=== PATIENT | female | born 1955 | race Caucasian/White ===

== ENCOUNTER 2020-01-10 20:35 | Inpatient (IN) | payer MEDICAID ==
[~2020-01-10] VITALS: Ht 160 cm; Wt 70.5 kg
[~2020-01-10 20:35] MED LIST: heparin, porcine-25,000 units/D5-250ml premix IV ONE; nitroGLYCERIN in D5W 50mg/250ml (Tridil) infusion IV ONE
[2020-01-10] MEDS ORDERED: nitroGLYCERIN-Tridil 50MG/D5W 250 ML IV PRN (20:42)
[2020-01-10] MEDS ORDERED: NO HOME MEDS (20:45)
--- NOTE | 2020-01-10 20:50 | NUR ---
PT Allison CAN BE REACHED THROUGH COUSIN Suzie CELL PHONE AT [phone] . HE IS CURRENTLY AWAITING PLAN OF CARE UPDATE IN THE PARKING LOT IN A SMALL WHITE SUV PARKED IN [facility] IN FRONT OF THE MAIN ENTRANCE
[2020-01-10] MEDS ORDERED: heparin 10,000 units/1 ML INJ IV ONE (20:55)
[2020-01-10] MEDS: heparin 25,000 UNIT/250ml bag 250 ML IV SCH (21:00)
--- NOTE | 2020-01-10 21:00 | NUR ---
MIGUELANGEL TOOK PERSONAL BELONGINGS TO , KALI , IN PARKING LOT SHE HAS REQUESTED
[2020-01-10 21:02] LABS: BASOPHILS # (AUTO) 0.1 X10'3 (0-0.2); EOSINOPHILS # (AUTO) 0.2 X10'3 (0-0.9); EOSINOPHILS % (AUTO) 1.7 % (0-6); HEMATOCRIT 46.6 % (35.0-45.0); HEMOGLOBIN 15.6 g/dl (12.0-16.0); LYMPHOCYTES # (AUTO) 4.7 X10'3 (1.1-4.8); LYMPHOCYTES % (AUTO) 33.5 % (21-51); MEAN CORPUSCULAR HEMOGLOBIN 30.6 PG (27.0-31.0); MEAN CORPUSCULAR HGB CONC 33.5 g/dL (33.0-36.5); MEAN CORPUSCULAR VOLUME 91.3 FL (78-98); MEAN PLATELET VOLUME 9.2 FL (7.4-10.4); MONOCYTES # (AUTO) 0.9 X10'3 (0-0.9); MONOCYTES % (AUTO) 6.6 % (2-12); NEUTROPHILS % (AUTO) 57.2 % (42-75); PLATELET COUNT 259 X10'3 (140-440); RED CELL DISTRIBUTION WIDTH 13.9 % (11.5-14.5)
[2020-01-10] MEDS ORDERED: LIDOcaine 1% (10mg/ml)w/preservative injection 20ml MDV ONE (21:08)
[2020-01-10] MEDS ORDERED: midazolam 2 mg/2 ml injection ONE (21:08)
[2020-01-10] MEDS ORDERED: iohexol 350 MG/ML 50ML vial IV ONE (21:08)
[2020-01-10] MEDS ORDERED: fentaNYL/PF 50MCG/1 ML 2ML syringe ONE (21:08)
[2020-01-10] MEDS ORDERED: heparin 1,000unit/ml 10ml vial 10 ML ONE (21:08)
[2020-01-10] MEDS ORDERED: iohexol 350 MG/1 ML 200ml bottle ONE (21:09)
[2020-01-10 21:10] LABS: PARTIAL THROMBOPLASTIN TIME 29 SECONDS (22-32)
[2020-01-10 21:14] LABS: ALANINE AMINOTRANSFERASE 20 U/L (12-78); ALBUMIN 3.8 G/DL (3.4-5.0); ALBUMIN/GLOBULIN RATIO 0.9 (1.1-1.5); ALKALINE PHOSPHATASE 102 IU/L (46-116); ANION GAP 8 (8-16); ASPARTATE AMINO TRANSFERASE 16 U/L (10-37); BILIRUBIN,TOTAL 0.2 MG/DL (0.1-1.0); BLOOD UREA NITROGEN 11 MG/DL (7-18); BUN/CREATININE RATIO 11.5 (6.6-38.0); CALCIUM 9.6 MG/DL (8.5-10.1); CHLORIDE 103 MMOL/L (99-107); CREATININE 0.96 MG/DL (0.40-0.90); GLUCOSE 153 MG/DL (70-104); POTASSIUM 3.9 MMOL/L (3.5-5.1); SODIUM 141 MMOL/L (135-145); TOTAL CARBON DIOXIDE 30.2 MMOL/L (24-32); TOTAL PROTEIN 7.9 G/DL (6.4-8.2); eGFR 59 ML/MIN
[2020-01-10 21:23] LABS: LIPASE 244 U/L (73-393); MAGNESIUM 2.1 MG/DL (1.5-2.4)
[2020-01-10] MEDS ORDERED: DOPamine 400mg/D5W 250ml 250 ML IV ONE (21:48)
[2020-01-10] MEDS ORDERED: iohexol 350MG/ML 100ml bottle IV ONE (21:52)
[2020-01-10] MEDS ORDERED: ticagrelor 90mg tablet ONE (22:34)
[2020-01-10 23:00] VITALS: BP_SYST 105; BP_SYST 127; BP_DIAS 55; BP_DIAS 65
--- NOTE | 2020-01-10 23:05 | NUR ---
received pt via bed from cathlab, rt femoral sheath in place transduced and femstop in place for a small hematoma that occurred in cathlab. pt is awake and following commands, placed on monitor 1155 pts heart rate down to 52 sb, sbp via art and cuff in the 60's pt is weak and diaphoretic, spoke to Dr. Sheldon orders to stop heprian at 0300 get an act, when act less then 160 pul sheath, manual hold replace with femstop protocal to be followed, and to start dopamine to keep heart rate greater then 60 and map greater then 60 as well Addendum: 01/11/20 at 0456 by Crystal Reis RN also give a 500 ml bolus of ns
[2020-01-10 23:15] VITALS: BP 128/65
[2020-01-10 23:30] VITALS: BP 132/69
[2020-01-10] MEDS ORDERED: normal saline 1000ml 1,000 ML IV SCH (23:40)
[2020-01-10] MEDS ORDERED: cyclobenzaprine 10mg tablet PO PRN (23:45)
[2020-01-10] MEDS ORDERED: OXAZEpam 15mg capsule PO PRN (23:45)
[2020-01-10] MEDS ORDERED: acetaminophen 325mg tablet PO PRN (23:45)
[2020-01-10] MEDS ORDERED: HYDROcodone/acetaminophen 10/325mg tab PO PRN (23:45)
[2020-01-10] MEDS ORDERED: magnesium hydroxide 30ml (MOM) UD suspension PO PRN (23:45)
[2020-01-11] VITALS (26 sets, daily range): BP systolic 61–121; BP diastolic 28–54
[2020-01-11] MEDS ORDERED: DOPamine 400mg/D5W 250ml 250 ML IV ONE (00:07)
[2020-01-11] MEDS: DOPamine 400mg/D5W 250ml 250 ML IV SCH ×3 (00:40→18:26)
[2020-01-11 02:31] LABS: ALANINE AMINOTRANSFERASE 18 U/L (12-78); ALBUMIN 2.8 G/DL (3.4-5.0); ALKALINE PHOSPHATASE 75 IU/L (46-116); ANION GAP 10 (8-16); ASPARTATE AMINO TRANSFERASE 38 U/L (10-37); BILIRUBIN,TOTAL 0.3 MG/DL (0.1-1.0); BLOOD UREA NITROGEN 14 MG/DL (7-18); BUN/CREATININE RATIO 21.5 (6.6-38.0); CALCIUM 7.8 MG/DL (8.5-10.1); CHLORIDE 108 MMOL/L (99-107); CREATININE 0.65 MG/DL (0.40-0.90); GLUCOSE 195 MG/DL (70-104); POTASSIUM 3.9 MMOL/L (3.5-5.1); SODIUM 141 MMOL/L (135-145); TOTAL CARBON DIOXIDE 23.5 MMOL/L (24-32); TOTAL PROTEIN 5.6 G/DL (6.4-8.2); eGFR > 90 ML/MIN
[2020-01-11 02:36] LABS: MAGNESIUM 1.9 MG/DL (1.5-2.4); PHOSPHORUS 2.8 MG/DL (2.3-4.5)
[2020-01-11 02:53] LABS: BASOPHILS % (AUTO) 0.3 % (0-1); EOSINOPHILS # (AUTO) 0.1 X10'3 (0-0.9); EOSINOPHILS % (AUTO) 0.6 % (0-6); HEMATOCRIT 37.2 % (35.0-45.0); HEMOGLOBIN 12.4 g/dl (12.0-16.0); LYMPHOCYTES # (AUTO) 2.8 X10'3 (1.1-4.8); LYMPHOCYTES % (AUTO) 20.4 % (21-51); MEAN CORPUSCULAR HGB CONC 33.2 g/dL (33.0-36.5); MEAN CORPUSCULAR VOLUME 90.4 FL (78-98); MEAN PLATELET VOLUME 9.6 FL (7.4-10.4); MONOCYTES # (AUTO) 0.9 X10'3 (0-0.9); MONOCYTES % (AUTO) 6.1 % (2-12); NEUTROPHILS # (AUTO) 10.1 X10'3 (1.8-7.7); NEUTROPHILS % (AUTO) 72.6 % (42-75); PLATELET COUNT 262 X10'3 (140-440); RED BLOOD COUNT 4.11 X10'6 (4.20-5.60); RED CELL DISTRIBUTION WIDTH 13.6 % (11.5-14.5); WHITE BLOOD COUNT 13.9 X10'3 (4.5-11.0)
[2020-01-11] MEDS: HYDROcodone/acetaminophen 10/325mg tab PO PRN ×4 (04:42→20:44)
--- NOTE | 2020-01-11 05:53 | NUR ---
sheath dc'd manual hold 20 min hemostasis obtained, femstop placed pt tolerated well
[2020-01-11] MEDS ORDERED: ondansetron/PF 4mg/2ml inj ONE (05:59)
--- NOTE | 2020-01-11 06:08 | NUR ---
updated Dr. Sheldon trop 18.9 and pt is nauseated and remains on dopamine new orders Addendum: 01/11/20 at 0616 by Crystal Reis RN for zofran 4mg iv q6 hr and for 500ml bolus of ns then re check hgb in 4 hrs.
[2020-01-11] MEDS ORDERED: ondansetron/PF 4mg/2ml inj IV PRN (06:10)
--- NOTE | 2020-01-11 06:38 | NUR ---
report given to rec rn plan of care reviewed
[2020-01-11 06:53] LABS: CHOLESTEROL 191 MG/DL (0-200); HDL CHOLESTEROL 32 MG/DL (35-60); LDL CHOLESTEROL 147 MG/DL (50-100); TRIGLYCERIDES 102 MG/DL (20-135)
[2020-01-11] MEDS: heparin 25,000 UNIT/250ml bag 250 ML IV SCH (07:00)
[2020-01-11] MEDS ORDERED: lisinopril 5mg tablet PO SCH (08:00)
[2020-01-11] MEDS: metoprolol succinate 25mg (24-HOUR) SR. Tablet PO SCH (08:00)
[2020-01-11] MEDS ORDERED: normal saline 1000ml 1,000 ML IV ONE (08:45)
[2020-01-11] MEDS ORDERED: morphine 4 MG/ML inj SYRINge ONE (08:47)
[2020-01-11] MEDS ORDERED: morphine 2 MG/ML inj. syringe IV PRN (08:50)
[2020-01-11] MEDS ORDERED: NORepinephrine 8mg/ 250ml NS 250 ML IV ONE (09:09)
[2020-01-11 09:30] LABS: BASOPHILS % (AUTO) 0.2 % (0-1); EOSINOPHILS % (AUTO) 0 % (0-6); HEMATOCRIT 35.4 % (35.0-45.0); HEMOGLOBIN 11.8 g/dl (12.0-16.0); LYMPHOCYTES # (AUTO) 1.7 X10'3 (1.1-4.8); LYMPHOCYTES % (AUTO) 12.2 % (21-51); MEAN CORPUSCULAR HEMOGLOBIN 30.4 PG (27.0-31.0); MEAN CORPUSCULAR HGB CONC 33.4 g/dL (33.0-36.5); MEAN CORPUSCULAR VOLUME 91.1 FL (78-98); MEAN PLATELET VOLUME 9.2 FL (7.4-10.4); MONOCYTES # (AUTO) 0.6 X10'3 (0-0.9); MONOCYTES % (AUTO) 4.3 % (2-12); NEUTROPHILS # (AUTO) 11.8 X10'3 (1.8-7.7); NEUTROPHILS % (AUTO) 83.3 % (42-75); PLATELET COUNT 231 X10'3 (140-440); RED BLOOD COUNT 3.88 X10'6 (4.20-5.60); RED CELL DISTRIBUTION WIDTH 13.7 % (11.5-14.5); WHITE BLOOD COUNT 14.1 X10'3 (4.5-11.0)
[2020-01-11 09:33] LABS: ALBUMIN 2.8 G/DL (3.4-5.0); ANION GAP 8 (8-16); BLOOD UREA NITROGEN 13 MG/DL (7-18); BUN/CREATININE RATIO 18.6 (6.6-38.0); CALCIUM 7.7 MG/DL (8.5-10.1); CHLORIDE 111 MMOL/L (99-107); GLUCOSE 205 MG/DL (70-104); POTASSIUM 3.9 MMOL/L (3.5-5.1); SODIUM 142 MMOL/L (135-145); TOTAL CARBON DIOXIDE 23.4 MMOL/L (24-32); eGFR 84 ML/MIN
[2020-01-11 09:40] LABS: TROPONIN I 11.77 NG/ML (0.0-0.05)
--- NOTE | 2020-01-11 10:00 | NUR ---
Problems reprioritized. Patient report given, questions answered & plan of care reviewed with GAVIOTA Clark.
--- NOTE | 2020-01-11 10:07 | NUR ---
[facility] LINE INFORMATION: REF: [id number] LOT: [id number] EXP: 05/09/2020
[2020-01-11] MEDS: aspirin 81mg tab.chew PO SCH (10:50)
[2020-01-11] MEDS: atorvastatin 20mg tablet PO SCH (10:50)
[2020-01-11] MEDS: ticagrelor 90mg tablet PO SCH ×2 (10:51→20:43)
[2020-01-11] MEDS: docusate sod 100mg capsule PO SCH ×2 (10:51→20:43)
--- NOTE | 2020-01-11 12:00 | NUR ---
femstop removed, hemostasis achieved, no hematoma present.
[2020-01-11 12:14] LABS: HEMOGLOBIN 10.4 g/dl (12.0-16.0); MEAN CORPUSCULAR HEMOGLOBIN 29.8 PG (27.0-31.0); MEAN CORPUSCULAR HGB CONC 32.6 g/dL (33.0-36.5); MEAN CORPUSCULAR VOLUME 91.5 FL (78-98); MEAN PLATELET VOLUME 9.2 FL (7.4-10.4); PLATELET COUNT 224 X10'3 (140-440); RED BLOOD COUNT 3.49 X10'6 (4.20-5.60); RED CELL DISTRIBUTION WIDTH 13.6 % (11.5-14.5); WHITE BLOOD COUNT 14.9 X10'3 (4.5-11.0)
--- NOTE | 2020-01-11 12:59 | NUR ---
Noted pt hx diet-controlled DM and first admit w/ no A1C hx. Pending A1C at this time; will monitor for results and DM ed needs as medically indicated. Addendum: 01/11/20 at [address] Amended: Links added.
[2020-01-11 13:09] LABS: HEMOGLOBIN A1C 6.3 % (4.5-6.2)
--- NOTE | 2020-01-11 13:30 | NUR ---
patient to CT
--- NOTE | 2020-01-11 13:50 | NUR ---
patient back to room,
--- NOTE | 2020-01-11 18:35 | NUR ---
Patient in room ICU 2043. I have received report from Amber MOREAU, and had the opportunity to ask questions and assume patient care.
[2020-01-11] MEDS: lisinopril 5mg tablet PO SCH (20:44)
[2020-01-11 22:49] LABS: HEMATOCRIT 31.4 % (35.0-45.0); HEMOGLOBIN 10.7 g/dl (12.0-16.0); MEAN CORPUSCULAR HEMOGLOBIN 30.5 PG (27.0-31.0); MEAN CORPUSCULAR HGB CONC 34.1 g/dL (33.0-36.5); MEAN CORPUSCULAR VOLUME 89.4 FL (78-98); MEAN PLATELET VOLUME 8.8 FL (7.4-10.4); PLATELET COUNT 170 X10'3 (140-440); RED BLOOD COUNT 3.52 X10'6 (4.20-5.60); RED CELL DISTRIBUTION WIDTH 14.3 % (11.5-14.5); WHITE BLOOD COUNT 13.8 X10'3 (4.5-11.0)
--- NOTE | 2020-01-11 22:50 | NUR ---
Patient resting at this moment. No complaining of pain, The site is clean, dry, intact. No chest pain.
--- NOTE | 2020-01-11 22:54 | NUR ---
The Hemoglobin level is 10.7. Will redraw the in H&H at 0230. Patient is asymptomatic and resting at this time.
[2020-01-12] VITALS (21 sets, daily range): BP systolic 88–151; BP diastolic 37–64
[2020-01-12 03:00] LABS: BASOPHILS # (AUTO) 0.1 X10'3 (0-0.2); BASOPHILS % (AUTO) 0.6 % (0-1); EOSINOPHILS # (AUTO) 0.2 X10'3 (0-0.9); EOSINOPHILS % (AUTO) 1.1 % (0-6); HEMATOCRIT 32.4 % (35.0-45.0); HEMOGLOBIN 10.7 g/dl (12.0-16.0); MEAN CORPUSCULAR HEMOGLOBIN 29.4 PG (27.0-31.0); MEAN CORPUSCULAR HGB CONC 32.9 g/dL (33.0-36.5); MEAN CORPUSCULAR VOLUME 89.2 FL (78-98); MEAN PLATELET VOLUME 9.1 FL (7.4-10.4); MONOCYTES # (AUTO) 1.1 X10'3 (0-0.9); MONOCYTES % (AUTO) 7.8 % (2-12); NEUTROPHILS # (AUTO) 9.3 X10'3 (1.8-7.7); NEUTROPHILS % (AUTO) 68.5 % (42-75); PLATELET COUNT 182 X10'3 (140-440); RED BLOOD COUNT 3.63 X10'6 (4.20-5.60); RED CELL DISTRIBUTION WIDTH 14.4 % (11.5-14.5); WHITE BLOOD COUNT 13.7 X10'3 (4.5-11.0)
[2020-01-12 03:12] LABS: ALANINE AMINOTRANSFERASE 17 U/L (12-78); ALBUMIN 2.8 G/DL (3.4-5.0); ALKALINE PHOSPHATASE 72 IU/L (46-116); ANION GAP 6 (8-16); ASPARTATE AMINO TRANSFERASE 26 U/L (10-37); BILIRUBIN,TOTAL 0.9 MG/DL (0.1-1.0); BLOOD UREA NITROGEN 8 MG/DL (7-18); BUN/CREATININE RATIO 13.6 (6.6-38.0); CALCIUM 8.3 MG/DL (8.5-10.1); CHLORIDE 110 MMOL/L (99-107); CREATININE 0.59 MG/DL (0.40-0.90); GLUCOSE 123 MG/DL (70-104); POTASSIUM 3.5 MMOL/L (3.5-5.1); SODIUM 144 MMOL/L (135-145); TOTAL CARBON DIOXIDE 27.8 MMOL/L (24-32); TOTAL PROTEIN 5.7 G/DL (6.4-8.2); eGFR > 90 ML/MIN
--- NOTE | 2020-01-12 03:25 | NUR ---
No change in Hemoglobin level. It is 10.7. Patient is asymptomatic, and resting well. No complaining of chest pain. Will recheck Hemoglobin at 0630.
--- NOTE | 2020-01-12 06:28 | NUR ---
Problems reprioritized. Patient report given Alexx, questions answered & plan of care reviewed with .
[2020-01-12 06:34] LABS: HEMATOCRIT 32.7 % (35.0-45.0); HEMOGLOBIN 11.1 g/dl (12.0-16.0); MEAN CORPUSCULAR HEMOGLOBIN 30.2 PG (27.0-31.0); MEAN CORPUSCULAR VOLUME 88.9 FL (78-98); MEAN PLATELET VOLUME 8.8 FL (7.4-10.4); PLATELET COUNT 178 X10'3 (140-440); RED BLOOD COUNT 3.68 X10'6 (4.20-5.60); RED CELL DISTRIBUTION WIDTH 14.6 % (11.5-14.5); WHITE BLOOD COUNT 12.9 X10'3 (4.5-11.0)
[2020-01-12] MEDS: ticagrelor 90mg tablet PO SCH ×2 (08:14→21:47)
[2020-01-12] MEDS: atorvastatin 20mg tablet PO SCH (08:14)
[2020-01-12] MEDS: docusate sod 100mg capsule PO SCH ×2 (08:14→21:47)
[2020-01-12] MEDS: aspirin 81mg tab.chew PO SCH (08:14)
[2020-01-12] MEDS: metoprolol succinate 25mg (24-HOUR) SR. Tablet PO SCH (08:14)
[2020-01-12] MEDS ORDERED: morphine 4 MG/ML inj SYRINge IV ONE (09:00)
[2020-01-12] MEDS ORDERED: morphine 2 MG/ML inj. syringe IV ONE (09:00)
--- NOTE | 2020-01-12 09:00 | NUR ---
DECREASED DOPAMINE GTT TO 2.9MCG/KG/HR PER DR. ARGUELLO'S VERBAL ORDER WEAN DOPAMINE TODAY AND POSSIBLY TRANSFER TO PCU
[2020-01-12] MEDS: DOPamine 400mg/D5W 250ml 250 ML IV SCH ×2 (09:24→18:45)
--- NOTE | 2020-01-12 10:00 | NUR ---
DECREASED DOPAMINE GTT TO 2 MCG/KG/MIN
[2020-01-12 10:48] LABS: HEMOGLOBIN 10.7 g/dl (12.0-16.0); MEAN CORPUSCULAR HEMOGLOBIN 29.8 PG (27.0-31.0); MEAN CORPUSCULAR HGB CONC 33.5 g/dL (33.0-36.5); MEAN CORPUSCULAR VOLUME 88.9 FL (78-98); MEAN PLATELET VOLUME 9.1 FL (7.4-10.4); PLATELET COUNT 169 X10'3 (140-440); RED CELL DISTRIBUTION WIDTH 14.3 % (11.5-14.5); WHITE BLOOD COUNT 11.1 X10'3 (4.5-11.0)
--- NOTE | 2020-01-12 11:00 | NUR ---
BP 88/41; CALLED DR. ARGUELLO ORDER TO INCREASE DOPAMINE TO 3MCG/KG/MIN, GIVE 250ML BOLUS WILL CONTINUE TO MONITOR
[2020-01-12] MEDS ORDERED: normal saline 1000ml 1,000 ML IV ONE (11:10)
--- NOTE | 2020-01-12 12:45 | NUR ---
Morphine given yesterday after Dr. Rios gave verbal order for 2mg IVP to give to patient for acute lower back pain. Sunshine the charge nurse got the 4 mg dose out of the omnicelle. I gave 2 mg of the 4 mg dose and Sierra Aguilar RN observed this waste.
[2020-01-12] MEDS ORDERED: normal saline 1000ml 1,000 ML IV SCH (14:00)
--- NOTE | 2020-01-12 14:00 | NUR ---
BP REMAINS 101/39; LET DR. ALMARAZ KNOW AT BEDSIDE ORDER FOR 500ML BOLUS NOW WILL CONTINUE TO MONITOR
[2020-01-12 15:27] LABS: HEMATOCRIT 32.1 % (35.0-45.0); HEMOGLOBIN 10.4 g/dl (12.0-16.0); MEAN CORPUSCULAR HEMOGLOBIN 29.3 PG (27.0-31.0); MEAN CORPUSCULAR HGB CONC 32.5 g/dL (33.0-36.5); MEAN CORPUSCULAR VOLUME 90.2 FL (78-98); MEAN PLATELET VOLUME 9.3 FL (7.4-10.4); PLATELET COUNT 175 X10'3 (140-440); RED BLOOD COUNT 3.55 X10'6 (4.20-5.60); RED CELL DISTRIBUTION WIDTH 14.4 % (11.5-14.5); WHITE BLOOD COUNT 11.2 X10'3 (4.5-11.0)
[2020-01-12] MEDS: lisinopril 5mg tablet PO SCH (16:11)
--- NOTE | 2020-01-12 18:35 | NUR ---
Patient in room ICU 2043. I have received report from Yoon CHRISTIAN, and had the opportunity to ask questions and assume patient care.
[2020-01-12 21:43] LABS: HEMATOCRIT 30.3 % (35.0-45.0); HEMOGLOBIN 10.2 g/dl (12.0-16.0); MEAN CORPUSCULAR HEMOGLOBIN 30.1 PG (27.0-31.0); MEAN CORPUSCULAR HGB CONC 33.6 g/dL (33.0-36.5); MEAN CORPUSCULAR VOLUME 89.7 FL (78-98); MEAN PLATELET VOLUME 9.3 FL (7.4-10.4); PLATELET COUNT 167 X10'3 (140-440); RED BLOOD COUNT 3.38 X10'6 (4.20-5.60); RED CELL DISTRIBUTION WIDTH 14.7 % (11.5-14.5); WHITE BLOOD COUNT 12.6 X10'3 (4.5-11.0)
[2020-01-13] VITALS (9 sets, daily range): BP systolic 113–148; BP diastolic 47–62
[2020-01-13 02:59] LABS: BASOPHILS # (AUTO) 0.1 X10'3 (0-0.2); BASOPHILS % (AUTO) 0.5 % (0-1); EOSINOPHILS # (AUTO) 0.3 X10'3 (0-0.9); EOSINOPHILS % (AUTO) 2.1 % (0-6); HEMOGLOBIN 10.2 g/dl (12.0-16.0); LYMPHOCYTES % (AUTO) 24.3 % (21-51); MEAN CORPUSCULAR HEMOGLOBIN 30.4 PG (27.0-31.0); MEAN CORPUSCULAR HGB CONC 33.8 g/dL (33.0-36.5); MEAN CORPUSCULAR VOLUME 89.9 FL (78-98); NEUTROPHILS # (AUTO) 8.1 X10'3 (1.8-7.7); NEUTROPHILS % (AUTO) 65.1 % (42-75); PLATELET COUNT 166 X10'3 (140-440); RED BLOOD COUNT 3.34 X10'6 (4.20-5.60); RED CELL DISTRIBUTION WIDTH 14.5 % (11.5-14.5); WHITE BLOOD COUNT 12.5 X10'3 (4.5-11.0)
--- NOTE | 2020-01-13 03:18 | NUR ---
Hemoglobin at 0230 came back 10.2. No drop in H&H. Will recheck the H&H at 0830. Patient is alert, oriented x4, no chest pain. Can't wait to go home toña.
--- NOTE | 2020-01-13 06:06 | NUR ---
Patient in room ICU 2043. I have received report from Seb, and had the opportunity to ask questions and assume patient care.
--- NOTE | 2020-01-13 06:35 | NUR ---
Patient in room ICU 2043. I have received report from GAVIOTA Vásquez and had the opportunity to ask questions and assume patient care.
[2020-01-13] MEDS: metoprolol succinate 25mg (24-HOUR) SR. Tablet PO SCH (07:52)
[2020-01-13] MEDS: aspirin 81mg tab.chew PO SCH (07:52)
[2020-01-13] MEDS: atorvastatin 20mg tablet PO SCH (07:52)
[2020-01-13] MEDS: docusate sod 100mg capsule PO SCH (07:52)
[2020-01-13] MEDS: ticagrelor 90mg tablet PO SCH (07:52)
[2020-01-13] MEDS ORDERED: normal saline 1000ml 1,000 ML IV ONE (11:50)
[2020-01-13] MEDS ORDERED: ASPI-611 PO (12:22)
[2020-01-13] MEDS ORDERED: LISI-642 PO (12:22)
[2020-01-13] MEDS ORDERED: TICA90TA PO (12:22)
[2020-01-13] MEDS ORDERED: METO-395 PO (12:22)
[2020-01-13] MEDS ORDERED: NITR0.4T51 SL (12:22)
[2020-01-13] MEDS ORDERED: ATOR20TA66 PO (12:22)
--- NOTE | 2020-01-13 17:31 | NUR ---
pt. discharged from facility at 1700. pt was escorted to the lobby by staff to meet her who was taking her home. pt. signed and understood all paperwork. pt. PICC line was d/c intact. all meds were faxed to [facility] on [facility] and script was handed to pt. pt. understands to make follow-up appointments. pt. left with all belongings.
== END 2020-01-13 17:00 | disposition home or self-care (01) | DRG 174 ==
LOC: ER 20:35 → ICU 2S 23:14
PROVIDERS: ADMIT Internal Medicine Cardiovascular Disease; ATTEND Internal Medicine Cardiovascular Disease
PROC: 4A023N7 Measurement of Cardiac Sampling and Pressure, Left Heart, Percutaneous Approach (ICD-10-PCS; principal; 2020-01-10)
PROC: 027034Z Dilation of Coronary Artery, One Artery with Drug-eluting Intraluminal Device, Percutaneous Approach (ICD-10-PCS; 2020-01-10)
PROC: B2111ZZ Fluoroscopy of Multiple Coronary Arteries using Low Osmolar Contrast (ICD-10-PCS; 2020-01-10)
PROC: B2151ZZ Fluoroscopy of Left Heart using Low Osmolar Contrast (ICD-10-PCS; 2020-01-10)
PROC: 02703ZZ Dilation of Coronary Artery, One Artery, Percutaneous Approach (ICD-10-PCS; 2020-01-10)
PROC: 30233N1 Transfusion of Nonautologous Red Blood Cells into Peripheral Vein, Percutaneous Approach (ICD-10-PCS; 2020-01-11)
PROC: 02HV33Z Insertion of Infusion Device into Superior Vena Cava, Percutaneous Approach (ICD-10-PCS; 2020-01-11)
PROC: B548ZZA Ultrasonography of Superior Vena Cava, Guidance (ICD-10-PCS; 2020-01-11)
DX: I21.19 ST elevation (STEMI) myocardial infarction involving other coronary artery of inferior wall (principal); K66.1 Hemoperitoneum; R71.0 Precipitous drop in hematocrit; I95.9 Hypotension, unspecified; E11.9 Type 2 diabetes mellitus without complications; E78.00 Pure hypercholesterolemia, unspecified; R58 Hemorrhage, not elsewhere classified; E78.5 Hyperlipidemia, unspecified; F17.200 Nicotine dependence, unspecified, uncomplicated; Z80.51 Family history of malignant neoplasm of kidney; Z71.6 Tobacco abuse counseling
CPT/HCPCS: 36415; 36430; 36573; 71045; 71250; 74176; 76937; 80048; 80053; 80061; 82948; 83036; 83690; 83735; 83880; 84100; 84484; 85025; 85027; 85347; 85610; 85730; 86885; 86900; 86901; 86920; 87081; 92920; 92921; 93005; 93308; 93458; 96365; 96375; 99152; 99153; 99285; A4620; A6258; C1725; C1751; C1769; C1874; C9600; C9606; G0378; J1265; J1644; J2001; J2250; J2270; J2405; J3010; J3490; J7030; J7040; P9016; Q9967

== ENCOUNTER 2020-01-15 21:17 | Emergency (ER) | payer MEDICAID ==
[~2020-01-15] VITALS: Ht 160 cm; Wt 70.5 kg
[~2020-01-15 21:17] MED LIST changes: +ASPI-611 PO; +ATOR20TA66 PO; +LISI-642 PO; +METO-395 PO; +NITR0.4T51 SL; +NO HOME MEDS; +TICA90TA PO; -heparin, porcine-25,000 units/D5-250ml premix IV ONE; -nitroGLYCERIN in D5W 50mg/250ml (Tridil) infusion IV ONE
[2020-01-15 22:20] VITALS: BP 116/66
== END 2020-01-15 22:18 | disposition home or self-care (01) ==
LOC: ER 21:18
DX: L76.32 Postprocedural hematoma of skin and subcutaneous tissue following other procedure (principal); G89.18 Other acute postprocedural pain; R42 Dizziness and giddiness; I25.10 Atherosclerotic heart disease of native coronary artery without angina pectoris; E78.00 Pure hypercholesterolemia, unspecified; I25.2 Old myocardial infarction; E11.9 Type 2 diabetes mellitus without complications; Z79.82 Long term (current) use of aspirin; Z79.899 Other long term (current) drug therapy; Y83.8 Other surgical procedures as the cause of abnormal reaction of the patient, or of later complication, without mention of misadventure at the time of the procedure
CPT/HCPCS: 99281

== ENCOUNTER 2020-01-19 18:36 | Emergency (ER) | payer MEDICAID ==
[~2020-01-19] VITALS: Ht 160 cm; Wt 69.5 kg
[2020-01-19 20:08] LABS: BASOPHILS # (AUTO) 0.1 X10'3 (0-0.2); BASOPHILS % (AUTO) 0.5 % (0-1); EOSINOPHILS # (AUTO) 0.3 X10'3 (0-0.9); EOSINOPHILS % (AUTO) 2.5 % (0-6); HEMATOCRIT 36.8 % (35.0-45.0); HEMOGLOBIN 12.1 g/dl (12.0-16.0); LYMPHOCYTES # (AUTO) 2.7 X10'3 (1.1-4.8); LYMPHOCYTES % (AUTO) 21.8 % (21-51); MEAN CORPUSCULAR HEMOGLOBIN 29.9 PG (27.0-31.0); MEAN CORPUSCULAR HGB CONC 32.9 g/dL (33.0-36.5); MEAN PLATELET VOLUME 8.9 FL (7.4-10.4); MONOCYTES # (AUTO) 1.1 X10'3 (0-0.9); MONOCYTES % (AUTO) 8.4 % (2-12); NEUTROPHILS # (AUTO) 8.4 X10'3 (1.8-7.7); NEUTROPHILS % (AUTO) 66.8 % (42-75); PLATELET COUNT 332 X10'3 (140-440); RED BLOOD COUNT 4.04 X10'6 (4.20-5.60); RED CELL DISTRIBUTION WIDTH 14.1 % (11.5-14.5); WHITE BLOOD COUNT 12.6 X10'3 (4.5-11.0)
[2020-01-19 20:26] LABS: ALBUMIN 3.4 G/DL (3.4-5.0); ANION GAP 8 (8-16); BLOOD UREA NITROGEN 15 MG/DL (7-18); BUN/CREATININE RATIO 20.8 (6.6-38.0); CALCIUM 9.2 MG/DL (8.5-10.1); CHLORIDE 105 MMOL/L (99-107); CREATININE 0.72 MG/DL (0.40-0.90); GLUCOSE 82 MG/DL (70-104); POTASSIUM 3.8 MMOL/L (3.5-5.1); SODIUM 141 MMOL/L (135-145); TOTAL CARBON DIOXIDE 28.1 MMOL/L (24-32); eGFR 82 ML/MIN
[2020-01-19 23:37] VITALS: BP 114/70
== END 2020-01-19 23:37 | disposition home or self-care (01) ==
LOC: ER 18:36
DX: M54.2 Cervicalgia (principal); M62.838 Other muscle spasm; I25.10 Atherosclerotic heart disease of native coronary artery without angina pectoris; E78.00 Pure hypercholesterolemia, unspecified; I25.2 Old myocardial infarction; E11.9 Type 2 diabetes mellitus without complications; Z79.82 Long term (current) use of aspirin; Z79.899 Other long term (current) drug therapy
CPT/HCPCS: 36415; 71046; 80048; 84484; 85025; 93005; 99285

== ENCOUNTER 2024-05-02 09:44 | Emergency (ER) | payer MEDICARE, MEDICAID ==
[~2024-05-02] VITALS: Ht 177.8 cm; Wt 113.3 kg
[~2024-05-02 09:44] MED LIST changes: -ASPI-611 PO
[2024-05-02 09:55] VITALS: TEMP 97.9
[2024-05-02] MEDS: diphenhydrAMINE 50 mg/ml inj IV ONE (10:37)
[2024-05-02] MEDS: epiNEPHrine 1 mg/ml inj SQ ONE (10:45)
[2024-05-02] MEDS: methylPREDNISolone sod succ 125mg/2ml vial IV ONE (11:02)
[2024-05-02] MEDS: famotidine/PF 10 mg/ml inj IV ONE (11:02)
[2024-05-02] MEDS: normal saline 1000ML IV soln IVB ONE (12:09)
[2024-05-02 12:15] LABS: BASOPHILS # (AUTO) 0.1 X10'3 (0-0.2); BASOPHILS % (AUTO) 0.7 % (0-1); EOSINOPHILS # (AUTO) 0.2 X10'3 (0-0.9); EOSINOPHILS % (AUTO) 1.6 % (0-6); HEMATOCRIT 43.8 % (35.0-45.0); HEMOGLOBIN 14.5 g/dl (12.0-16.0); LYMPHOCYTES # (AUTO) 5.1 X10'3 (1.1-4.8); LYMPHOCYTES % (AUTO) 43.7 % (21-51); MEAN CORPUSCULAR HEMOGLOBIN 30.7 PG (27.0-31.0); MEAN CORPUSCULAR HGB CONC 33.1 g/dL (33.0-36.5); MEAN CORPUSCULAR VOLUME 92.8 FL (78-98); MEAN PLATELET VOLUME 9.3 FL (7.4-10.4); MONOCYTES # (AUTO) 0.7 X10'3 (0-0.9); MONOCYTES % (AUTO) 5.9 % (2-12); NEUTROPHILS # (AUTO) 5.6 X10'3 (1.8-7.7); NEUTROPHILS % (AUTO) 48.1 % (42-75); PLATELET COUNT 244 X10'3 (140-440); RED BLOOD COUNT 4.72 X10'6 (4.20-5.60); RED CELL DISTRIBUTION WIDTH 13.5 % (11.5-14.5); WHITE BLOOD COUNT 11.6 X10'3 (4.5-11.0)
[2024-05-02 12:27] LABS: ALBUMIN 3.6 G/DL (3.4-5.0); ANION GAP 9 (8-16); BLOOD UREA NITROGEN 12 MG/DL (7-18); BUN/CREATININE RATIO 18.2 (10.0-20.0); CALCIUM 9.5 MG/DL (8.5-10.1); CHLORIDE 105 MMOL/L (99-107); CREATININE 0.66 MG/DL (0.40-0.90); GLUCOSE 160 MG/DL (70-104); POTASSIUM 3.6 MMOL/L (3.5-5.1); SODIUM 141 MMOL/L (135-145); TOTAL CARBON DIOXIDE 27.4 MMOL/L (24-32); eCRCL 88 ML/MIN; eGFR 89 ML/MIN
[2024-05-02 12:40] LABS: PLATELET ESTIMATE NORMAL; TOTAL CELLS COUNTED 100
[2024-05-02 13:03] VITALS: BP 131/60; PULSE 82; RESP 18; O2SAT 95
== END 2024-05-02 15:22 | disposition home or self-care (01) ==
LOC: ER 09:44
DX: T78.3XXA Angioneurotic edema, initial encounter (principal); I25.10 Atherosclerotic heart disease of native coronary artery without angina pectoris; E78.00 Pure hypercholesterolemia, unspecified; I25.2 Old myocardial infarction; E11.9 Type 2 diabetes mellitus without complications; Z79.899 Other long term (current) drug therapy
CPT/HCPCS: 80048; 85007; 85025; 96361; 96372; 96374; 96375; 99285; J0171; J1200; J2919; J3490; J7030

== ENCOUNTER 2025-03-16 08:30 | Emergency (ER) | payer MEDICARE, MEDICAID ==
[~2025-03-16] VITALS: Ht 160 cm; Wt 64.6 kg
[2025-03-16 08:47] VITALS: BP 131/72
--- NOTE | 2025-03-16 08:53 | Physician Documentation ---
History of Present Illness ~ Chief Complaint: Cold, cough & congestion Stated Complaint: CONGESTION Time Seen by MD: 08:54 Primary Medical Doctor: Lm-Tire Changer HPI Patient is a 69-year-old female with a history of coronary artery disease and emphysema. Current smoker. She reports that she has been feeling congested for the last several days with a cough and increased wheezing. Denies any recent fevers. Medication Reconciliation Allergies: Coded Allergies: KENNEDY Inhibitors (Unverified Allergy, Severe, angioedema, 05/02/24) lisinopril (Unverified Allergy, Severe, angioedema, 05/02/24) Scheduled Atorvastatin Calcium (Atorvastatin Calcium), 40 MG PO DAILY Lisinopril* (Zestril*), 2.5 MG PO HS Metoprolol Succinate (Metoprolol Succinate), 25 MG PO DAILY Nitroglycerin SL* (Nitrostat SL*), 1 TAB SL UD Ticagrelor (Brilinta), 90 MG PO BID Miscellaneous Medications Home Med List (No Home Medications), (Reported) Past Medical History Past Medical History: Coronary Artery Disease, High Cholesterol, Myocardial Infarction, Diabetes Past Surgical History: no surgical history Alcohol Use: None Drug Use: none Lives with: Spouse Lives In: Home Review of Systems ROS As stated above in the HPI, otherwise all systems are reviewed and negative. Physical Exam Vital Signs: Temperature: 99.3, Source: Temporal, Heart Rate: 87, Respiratory Rate: 18, BP: 131/72, Pulse Oximetry: 93, Weight: 64.600 Oxygen Flow Rate: 0 Physical Exam General: Alert, no apparent distress. Neck: Full range of motion. Respiratory: Moderate wheezing, no respiratory distress. Chest: No accessory muscle use. Cardiovascular: Regular rate and rhythm, no murmurs. Gastrointestinal: Soft, nontender, nondistended. Bowels sounds present. Extremities: Normal range of motion, no deformity. Neurologic: Oriented x4. Psychiatric: Normal mood and affect. Skin: Normal color, warm and dry. No edema, no ecchymosis. Progress Results/Orders Results/Orders Orders - KIMBERLEY RIOS NP Svn Treatment (03/16/25 08:51) Covid19 Binax Poc Result Entry (03/16/25 09:22) Completed Orders - KIMBERLEY RIOS NP Ipratropium/Albuterol Nebule (Ipratrop/A (03/16/25 08:55) Medications Received in ER Medications (Trade) Dose Ordered Sig/John Paul Route PRN Reason Start Time Stop Time Status Last Admin Dose Admin (ipratrop/ albuterol 0.5-3(2.5) MG/3ml nebule) 3 ml ONCE ONCE NEB 03/16/25 08:55 03/16/25 08:56 DC 03/16/25 09:06 3 ML Vital Signs 03/16/25 03/16/25 03/16/25 03/16/25 08:47 08:56 09:07 09:13 Temp 99.3 Pulse 87 80 88 Resp 18 18 16 18 B/P (MAP) 131/72 Pulse Ox 93 94 98 O2 Delivery Room Air* Room Air* O2 Flow Rate 0 0 0 FiO2 21 21 EKG/XRAY/CT/US/VASC/MRI Chest X-Ray : Additional Comments [place] [address] DIAGNOSTIC RADIOLOGY Patient: VALERIO AGUILAR Medical Record: [id number] [facility] 1955, Age: 69 Sex: Female Location: ER Patient Status: [facility] ER Service Date/Time: 03/16/25848 Ordering Physician: RAMON CAMPBELL DO Exam: CHEST,TWO VIEWS CHEST RADIOGRAPH Indication: CCC WITH LOW SPO2 Technique: Frontal and lateral view of the chest was obtained Comparison: None FINDINGS: Lines and Tubes: None Lungs: Clear Pleura: No effusion. No pneumothorax. Cardiomediastinal contours: Unremarkable Bones: Unremarkable IMPRESSION: No evidence of acute disease. Electronically Signed by:ELIAS MERCADO MD Date & Time: 03/16/25936 Dictated by: ELIAS MERCADO MD Dictation date and time: 03/16/25 0937 Primary Care Provider: NO PRIMARY CARE PROVIDER cc: RAMON CAMPBELL DO ~ Medical Decision Making Differential Dx:Considerations: Include: Allergic rhinitis, Influenza, Otitis media, Peritonsillar abscess, Pharyngitis-Diphtheria, Pharyngitis-Streptoccal, Pharyngitis-Viral, Pneumonia, Pnuemonitis, Sinusitis, URI Departure Time of Disposition: 09:51 Impression: Primary Impression: COPD exacerbation Discharge Instructions: Chronic Bronchitis, Adult Additional Instructions: Your chest xray did not show pneumonia. ease talk to your primary care about starting a regular controller for your emphysema such as Trelegy or Breztri. This will help you not get as sick when you get a viral illness. Take the mucinex twice daily for congestion, and drink plenty of fluids. Use the Ventolin every 4 hrs as needed for wheezing. Take the prednisone as prescribed x 5 days. Try to reduce or quit your smoking. Followup with primary care within the week. RETURN IF WORSE: Fever over 101 with shortness of breath, or other concerns that you're getting worse rather than better. Referrals: NO PRIMARY CARE PROVIDER (PCP) Prescriptions Guaifenesin (Mucinex) 600 Mg Tablet.sa 1 TAB PO Q12H for cough for 10 Days, #20 TAB 0 Refills Prov: KIMBERLEY RIOS NP 03/16/25 Prednisone* (Prednisone*) 20 Mg Tablet 2 TAB PO DAILY, #10 TAB Prov: KIMBERLEY RIOS NP 03/16/25 Albuterol Sulfate (Ventolin Hfa) 90 Mcg Hfa.aer.ad 2 PUFFS INH Q4HPRN PRN for wheezing for 30 Days, #18 GM 0 Refills Prov: KIMBERLEY RIOS NP 03/16/25 Education Educated: Patient Educated regarding: diagnosis, treatment, prognosis Signature Scribe Signature: x Attestation: The note accurately reflects work and decisions made by me.Kimberley Jansen NP 03/16/25 08:53 KIMBERLEY RIOS NP Mar 16, 2025 08:53
[2025-03-16] MEDS: ipratropium/albuterol 3ml nebule NEB ONE (09:06)
[2025-03-16 09:07] VITALS: PULSE 80; RESP 16; O2SAT 94
[2025-03-16 09:13] VITALS: PULSE 88; RESP 18; O2SAT 98
--- NOTE | 2025-03-16 09:39 | RADIOLOGY REPORT ---
CHEST RADIOGRAPH Indication: CCC WITH LOW SPO2 Technique: Frontal and lateral view of the chest was obtained Comparison: None FINDINGS: Lines and Tubes: None Lungs: Clear Pleura: No effusion. No pneumothorax. Cardiomediastinal contours: Unremarkable Bones: Unremarkable IMPRESSION: No evidence of acute disease.
[2025-03-16] MEDS ORDERED: GUAI600T45 PO (09:53)
[2025-03-16] MEDS ORDERED: ALBU18HF2 INH (09:53)
[2025-03-16] MEDS ORDERED: PRED20TA PO (09:53)
[2025-03-16 09:58] VITALS: TEMP 99.3
== END 2025-03-16 10:00 | disposition home or self-care (01) ==
LOC: ER 08:30
DX: J44.1 Chronic obstructive pulmonary disease with (acute) exacerbation (principal); E11.9 Type 2 diabetes mellitus without complications; E78.00 Pure hypercholesterolemia, unspecified; I25.10 Atherosclerotic heart disease of native coronary artery without angina pectoris; I25.2 Old myocardial infarction; F17.200 Nicotine dependence, unspecified, uncomplicated; Z88.8 Allergy status to other drugs, medicaments and biological substances
CPT/HCPCS: 71046; 94640; 94760; 99283